=== PATIENT | female | born 1950 | race Caucasian/White ===

== ENCOUNTER 2022-02-14 07:27 | Day surgery (SDC) | payer MEDICARE, BC ==
[2022-02-14] VITALS (273 sets, daily range): BP systolic 98–138; BP diastolic 32–67; PULSE 57–72; TEMP 97.7; O2SAT 87–100
[~2022-02-14] VITALS: Ht 160 cm; Wt 61.2 kg
[2022-02-14 08:52] LABS: HEMOGLOBIN 10.9 g/dl (12.5-16.0); MEAN CELL VOLUME 94 fl (80.0-100.0); MEAN CORPUSCULAR HEMOGLOBIN 29 pg (27-31); MEAN CORPUSCULAR HGB CONC 31 g/dl (33.0-37.0); MEAN PLATELET VOLUME 9.6 fl (7.4-10.4); PLATELET COUNT 269 K/mm3 (130-400); RED BLOOD COUNT 3.75 M/mm3 (4.10-5.30); REDCELL DISTRIBUTION WIDTH-CV 14.6 % (11.5-14.5)
[2022-02-14 08:56] LABS: HEMATOCRIT 35.2 % (37.0-47.0)
[2022-02-14] MEDS ORDERED: GLUCOPHAGE1000 MG PO (09:02)
[2022-02-14] MEDS ORDERED: FARXIGA5 PO (09:02)
[2022-02-14] MEDS ORDERED: LIPITOR 80MG80 MG PO (09:03)
[2022-02-14] MEDS ORDERED: LASIX 40MG TABL40 MG PO (09:03)
[2022-02-14] MEDS ORDERED: PRINIVIL10 MG PO (09:04)
[2022-02-14] MEDS ORDERED: BYSTOLIC5 MG PO (09:05)
[2022-02-14] MEDS ORDERED: PLAVIX 75MG TAB75 MG PO (09:05)
[2022-02-14] MEDS ORDERED: XOPENEX 1.1.25 MG/3 IH (09:06)
[2022-02-14] MEDS ORDERED: TRELEGY ELLIPT1 EACH IH (09:06)
[2022-02-14] MEDS ORDERED: NITROMIST0.4 MG/Act TL (09:07)
[2022-02-14] MEDS ORDERED: STIOLTO RESPIMAT4 GM IH (09:07)
[2022-02-14] MEDS ORDERED: PROAIR HFA0.09 MG/AC IH (09:07)
[2022-02-14 09:08] LABS: PROTHROMBIN TIME 11.4 SECONDS (9.7-12.8)
[2022-02-14] MEDS ORDERED: ASPIRIN E.C. 8181 MG PO (09:08)
[2022-02-14] MEDS ORDERED: BASAGLAR K100 UNIT/1 SQ (09:08)
[2022-02-14 09:09] LABS: CALCIUM 9.4 mg/dL (8.4-10.2); CREATININE, serum 0.86 mg/dL (0.57-1.11); POTASSIUM 4.4 mmol/L (3.5-4.5)
[2022-02-14] MEDS ORDERED: MAG-OX 400400 MG/TAB PO (09:09)
[2022-02-14] MEDS ORDERED: IRON TABLETS325 MG PO (09:09)
[2022-02-14] MEDS ORDERED: MELATONIN5 M1 PO (09:10)
[2022-02-14 09:11] LABS: PARTIAL THROMBOPLASTIN TIME 30.6 SECONDS (26.0-37.0)
--- NOTE | 2022-02-14 10:51 | NUR ---
SEE MERGE FOR VITAL SIGNS, ASSESSMENTS, INTERVENTIONS AND MEDICATIONS GIVEN.
--- NOTE | 2022-02-14 12:55 | NUR ---
Pt back to express unit after left heart cath. Rt groin site soft, dressing clean and dry. cms intact distal. tele initiated. nsr on monitor. menu provided.
--- NOTE | 2022-02-14 18:10 | NUR ---
Pt has completed her 6 hour bedrest, and is up and ambulatory with steady gait in room on room air, and around nurses station with her portable o2 at 3l/min. rt groin site remains soft without any evidence of bleeding. cms intact distal. I have reviewed dc/rx and fu instructions with pt and son. no questions at time of departure. pt is escorted to exit via wheelchair.
== END 2022-02-14 18:15 | disposition home or self-care (01) ==
LOC: COL.CAR 07:27
PROVIDERS: Internal Medicine Cardiovascular Disease
DX: I25.10 Atherosclerotic heart disease of native coronary artery without angina pectoris (principal); I25.84 Coronary atherosclerosis due to calcified coronary lesion; I25.83 Coronary atherosclerosis due to lipid rich plaque; I25.82 Chronic total occlusion of coronary artery; T82.855A Stenosis of coronary artery stent, initial encounter; T82.858A Stenosis of other vascular prosthetic devices, implants and grafts, initial encounter; I10 Essential (primary) hypertension; Z95.1 Presence of aortocoronary bypass graft; Z95.5 Presence of coronary angioplasty implant and graft
CPT/HCPCS: C1769; C1894; J2250; J3010; L1830; Q9967

== ENCOUNTER 2022-03-23 16:01 | Inpatient (IN) | payer MEDICARE, BC ==
[~2022-03-23] VITALS: Ht 157.6 cm; Wt 60.9 kg
[~2022-03-23 16:01] MED LIST: ASPIRIN E.C. 8181 MG PO; BASAGLAR K100 UNIT/1 SQ; BYSTOLIC5 MG PO; FARXIGA5 PO; GLUCOPHAGE1000 MG PO; IRON TABLETS325 MG PO; LASIX 40MG TABL40 MG PO; LIPITOR 80MG80 MG PO; MAG-OX 400400 MG/TAB PO; MELATONIN5 M1 PO; NITROMIST0.4 MG/Act TL; PLAVIX 75MG TAB75 MG PO; PRINIVIL10 MG PO; PROAIR HFA0.09 MG/AC IH; STIOLTO RESPIMAT4 GM IH; TRELEGY ELLIPT1 EACH IH; XOPENEX 1.1.25 MG/3 IH
[2022-03-23 17:02] VITALS: BP 129/41; PULSE 69; TEMP 98.5
--- NOTE | 2022-03-23 20:03 | NUR ---
PT A&OX4 RESTING IN BED, FAMILY AT BEDSIDE. PT RATES PN IN RT HIP A 12/12. PT ALSO REPORTS CRAMPING IN LLE CAUSING A LOT OF PN. VSS AND TELE IN PLACE. CHRISTENSEN TO DD W YELLOW URINE OUTPUT. FALL PRECAUTIONS IN PLACE. 02 3L NC SCDS AND TEDS TO BLE. NO NEEDS AT THIS TIME. CALL LIGHT WITHIN REACH.
[2022-03-23 20:44] VITALS: BP 120/47; PULSE 70; TEMP 98.4
[2022-03-23 22:27] VITALS: BP 120/47; PULSE 70; TEMP 98.4
[2022-03-23 23:27] LABS: PH 5.5 (5.0-8.5); URINE APPEARANCE Clear (CLEAR/HAZY); URINE BLOOD 2+ (NEGATIVE); URINE COLOR Yellow (YELLOW); URINE GLUCOSE 2+ (NEGATIVE); URINE KETONE Negative (NEGATIVE); URINE NITRATE Positive (NEGATIVE); URINE PROTEIN(semi-quant) Negative (NEGATIVE); URINE UROBILINOGEN 0.2 E.U/dL (0.2-1.0)
[2022-03-23 23:28] LABS: COLLECTION METHOD CLEAN CATCH
[2022-03-23 23:39] LABS: MUCOUS Present (NOT PRESENT); SQUAMOUS EPITHELIAL None Seen /hpf (0-10); URINE BACTERIA Rare /hpf (NONE SEEN); URINE RBC >50 /hpf (0-2)
[2022-03-24] VITALS (15 sets, daily range): BP systolic 84–126; BP diastolic 35–52; PULSE 60–76; TEMP 97.2–98.7
[2022-03-24 07:21] LABS: BASO % 0.4 % (0.0-2.0); EOS # 0.1 K/mm3 (0.0-0.7); EOS % 1.2 % (0.0-4.0); GRAN # 5.7 K/mm3 (1.4-6.5); GRAN % 77.2 % (42.2-75.2); LYMPH # 0.8 K/mm3 (1.2-3.4); LYMPH % 10.8 % (20.0-51.0); MEAN CELL VOLUME 95 fl (80.0-100.0); MEAN CORPUSCULAR HGB CONC 31 g/dl (33.0-37.0); MEAN PLATELET VOLUME 10.1 fl (7.4-10.4); MONO # 0.7 K/mm3 (0.1-0.6); PLATELET COUNT 234 K/mm3 (130-400); RED BLOOD COUNT 3.29 M/mm3 (4.10-5.30); REDCELL DISTRIBUTION WIDTH-CV 14.9 % (11.5-14.5)
[2022-03-24 07:23] LABS: HEMATOCRIT 31.1 % (37.0-47.0); HEMOGLOBIN 9.7 g/dl (12.5-16.0); MEAN CORPUSCULAR HEMOGLOBIN 29 pg (27-31)
[2022-03-24 07:29] LABS: CALCIUM 8.9 mg/dL (8.4-10.2); CREATININE, serum 0.83 mg/dL (0.57-1.11); MAGNESIUM 1.7 mg/dL (1.6-2.6); POTASSIUM 4.5 mmol/L (3.5-4.5)
--- NOTE | 2022-03-24 12:04 | NUR ---
drag out worker met with patient to discuss discharge planning. Patient [place] with her son and his . Patient states that she is independent with her activities of daily living and uses [employer] home oxygen at 3L. Patient states she gets her portable tanks through [facility] in [place]. Patient's primary care provider is Dr Osorio. Worker and patient discussed need for post acute rehab and patient is agreeable. Worker provided information on [facility] acute rehab unit, [place] [facility] as well as the Medicare.gov share with skilled care options. Worker will also meet with patient's son to discuss options. Patient is awaiting clearance for surgery.
--- NOTE | 2022-03-24 12:42 | NUR ---
Pt having some complaints of pain, but she did just recently vomit. Pt stated that she does not feel nauseated. Pt is also refusing any IV pain medications. Attempted to turn pt to change sheets, but she refused stating she was not going to move.
--- NOTE | 2022-03-24 16:04 | NUR ---
Report given to OR nurse, pt off the floor for surgery
--- NOTE | 2022-03-24 18:45 | NUR ---
PT BROUGHT BACK TO ROOM FROM SURGERY. PT SLEEPY BUT AROUSABLE. OXYMASK 4L. INCISION CDI.
--- NOTE | 2022-03-24 20:12 | NUR ---
TX GIVEN VIA MOUTHPIECE, TOLERATED WELL. PT ON 4L O2 BEFORE AND AFTER TX.
--- NOTE | 2022-03-24 21:58 | NUR ---
PT A&OX4 RESTING IN BED. MEDS GIVEN AND ASSESSMENT COMPLETE. PT TOLERATING PO. BS 154 AND DOES NO REQUIRE INSULIN. PT RATES PN A 2/10. DRESSING CDI. VSS AND TELE IN PLACE. 4L NC. CHRISTENSEN TO DD W YELLOW URINE OUTPUT. TEDS AND SCDS TO BLE. FALL PRECAUTIONS IN PLACE. NO NEEDS AT THIS TIME. CALL LIGHT WITHIN REACH.
[2022-03-25] VITALS (7 sets, daily range): BP systolic 88–111; BP diastolic 40–51; PULSE 57–94; TEMP 97.4–98.5
[2022-03-25 07:05] LABS: BASO % 0.3 % (0.0-2.0); GRAN # 6.1 K/mm3 (1.4-6.5); GRAN % 84.2 % (42.2-75.2); LYMPH # 0.5 K/mm3 (1.2-3.4); LYMPH % 7.1 % (20.0-51.0); MEAN CELL VOLUME 95 fl (80.0-100.0); MEAN CORPUSCULAR HGB CONC 32 g/dl (33.0-37.0); MEAN PLATELET VOLUME 10.5 fl (7.4-10.4); MONO # 0.6 K/mm3 (0.1-0.6); PLATELET COUNT 231 K/mm3 (130-400); REDCELL DISTRIBUTION WIDTH-CV 14.7 % (11.5-14.5)
[2022-03-25 07:10] LABS: HEMATOCRIT 30.3 % (37.0-47.0); HEMOGLOBIN 9.6 g/dl (12.5-16.0); MEAN CORPUSCULAR HEMOGLOBIN 30 pg (27-31)
[2022-03-25 07:15] LABS: CALCIUM 8.8 mg/dL (8.4-10.2); CREATININE, serum 1.4 mg/dL (0.57-1.11); POTASSIUM 4.5 mmol/L (3.5-4.5)
--- NOTE | 2022-03-25 09:00 | NUR ---
Pt. sitting up in bed. Pt. is A&OX3,assessment complete. INT to lt. ac patent. Pt. reports pain at a 4. Discussed pt. will be having PT today and taking a pain pill would be benificial. Pt. voices agreement. Giving pain meds per orders. Bhakta catheter to DD, with claribel hazy urine noted.
--- NOTE | 2022-03-25 14:22 | NUR ---
workers compensation legal secretary met with patient and her son and daughter in law to discuss discharge planning. Daughter in lawOksana is the point of contact and will provide transportation to discharge destination. [phone]. Patient's preference discharges: 1. [place] [facility] (they have the referral and are full today. Will need to contact Monday morning for possible acceptance. 2.[facility] (they are screening) 3. [facility] (they are screening for a Monday Admit ) 4. [facility] facility in [place] can accept on Monday.
[2022-03-25 15:27] LABS: CREATININE, serum 1.63 mg/dL (0.57-1.11)
[2022-03-25 15:41] LABS: FRACTIONAL EXCRETION OF NA+ 0.98 %
--- NOTE | 2022-03-25 15:50 | NUR ---
floor worker well service met with patient and friends Drea/Narendra Lianet [phone] and called daughter in law, Shakira [phone] and confirmed that [facility] must be called each day to see if they can accept. Inpatient Rehab must be consulted each day to see if they can accept and that the [facility] has accepted to swing bed upon discharge. Shakira or the [facility] will provide transportation with home oxygen upon discharge.
--- NOTE | 2022-03-25 19:59 | NUR ---
PT A&OX4 RESTING IN BED. RATES PN IN HIP A 09/12. DRESSING CDI. MEDS GIVEN AND ASSESSMENT COMPLETE. 4UNITS INSULIN NEEDED PER BS OF 212. VSS STABLE AND TELE IN PLACE. TEDS AND SCDS TO BLE. NS AT 75 IN RF. 02 AT 3L. FALL PRECAUTIONS IN PLACE. NO NEEDS AT THIS TIME. CALL LIGHT WITHIN REACH.
[2022-03-26 04:38] VITALS: BP 102/42; PULSE 59; TEMP 98.4
[2022-03-26 07:27] LABS: BASO % 0.2 % (0.0-2.0); EOS # 0.1 K/mm3 (0.0-0.7); EOS % 1.2 % (0.0-4.0); GRAN # 5.8 K/mm3 (1.4-6.5); GRAN % 69.9 % (42.2-75.2); LYMPH # 1.4 K/mm3 (1.2-3.4); LYMPH % 16.9 % (20.0-51.0); MEAN CELL VOLUME 92 fl (80.0-100.0); MEAN CORPUSCULAR HGB CONC 33 g/dl (33.0-37.0); MONO # 0.9 K/mm3 (0.1-0.6); MONO % 11.4 % (1.7-9.3); PLATELET COUNT 221 K/mm3 (130-400); RED BLOOD COUNT 2.72 M/mm3 (4.10-5.30); REDCELL DISTRIBUTION WIDTH-CV 14.9 % (11.5-14.5)
[2022-03-26 07:35] LABS: HEMATOCRIT 25.1 % (37.0-47.0); HEMOGLOBIN 8.2 g/dl (12.5-16.0); MEAN CORPUSCULAR HEMOGLOBIN 30 pg (27-31)
[2022-03-26 07:45] LABS: CALCIUM 8.1 mg/dL (8.4-10.2); CREATININE, serum 1.01 mg/dL (0.57-1.11); POTASSIUM 4.4 mmol/L (3.5-4.5)
[2022-03-26 07:59] VITALS: BP 84/45; PULSE 59; TEMP 98.2
--- NOTE | 2022-03-26 08:00 | NUR ---
Pt. sitting up in bed. Pt. is A&OX3, assessment complete. INT to lt. ac patent. Pt. reports pain at a 3 on pain scale at this time. Pt. denies further needs, call light within reach.
--- NOTE | 2022-03-26 11:23 | NUR ---
DC to IPR 03/27
[2022-03-26 12:26] VITALS: BP 90/49; PULSE 65; TEMP 98.7
--- NOTE | 2022-03-26 12:36 | NUR ---
Installation Drafter rounds: Installation Drafter visit attempted. Another care provider was in the room (possibly physical therapy). Patient declined Installation Drafter visit at this time, but would like another attempt at a Installation Drafter visit be made.
--- NOTE | 2022-03-26 13:55 | NUR ---
Mint Wafer Depositor rounds: Patient is Sabianist. Has her own bible, devotional, prayer book, and rosary. Patient had hip surgery. Lives with son who is medically retired from [employer]. Patient is a [place] and retired from the [employer]. Mint Wafer Depositor provided supportive listening and prayer.
[2022-03-26 16:02] VITALS: BP 92/48; PULSE 64; TEMP 98.6
--- NOTE | 2022-03-26 19:40 | NUR ---
PT A&OX4 RESTING IN BED. MEDS GIVEN AND ASSESSMENT COMPLETE. RATES PN IN THE RIGHT HIP A 09/12. VSS AND TELE IN PLACE. TEDS AND SCDS TO BLE. 02 2L NC. FALL PRECAUTIONS IN PLACE. NO NEEDS AT THIS TIME. CALL LIGHT WITHIN REACH.
[2022-03-26 20:44] VITALS: BP 108/38; PULSE 70; TEMP 97.9
[2022-03-26 23:59] VITALS: BP 94/40; PULSE 58; TEMP 97.9
[2022-03-27 03:36] VITALS: BP 109/58; PULSE 60; TEMP 97.5
--- NOTE | 2022-03-27 08:00 | NUR ---
Pt. sitting up in bed. Pt. is A&OX3, assessment complete. INT to rt. forearm patent. Pt. reports pain at a 4 on pain scale and requests the muscle relaxer. Will give per orders. Pt. denies further needs, call light within reach.
[2022-03-27 08:24] LABS: BASO % 0.5 % (0.0-2.0); EOS # 0.2 K/mm3 (0.0-0.7); EOS % 2.9 % (0.0-4.0); GRAN # 3.6 K/mm3 (1.4-6.5); GRAN % 63.2 % (42.2-75.2); LYMPH # 1.2 K/mm3 (1.2-3.4); LYMPH % 20.3 % (20.0-51.0); MEAN CELL VOLUME 94 fl (80.0-100.0); MEAN CORPUSCULAR HGB CONC 32 g/dl (33.0-37.0); MEAN PLATELET VOLUME 10.4 fl (7.4-10.4); MONO # 0.7 K/mm3 (0.1-0.6); MONO % 12.8 % (1.7-9.3); PLATELET COUNT 229 K/mm3 (130-400); RED BLOOD COUNT 2.83 M/mm3 (4.10-5.30); REDCELL DISTRIBUTION WIDTH-CV 14.9 % (11.5-14.5)
[2022-03-27 08:25] LABS: HEMATOCRIT 26.6 % (37.0-47.0); HEMOGLOBIN 8.4 g/dl (12.5-16.0); MEAN CORPUSCULAR HEMOGLOBIN 30 pg (27-31)
[2022-03-27 08:52] LABS: CALCIUM 8.5 mg/dL (8.4-10.2); CREATININE, serum 0.78 mg/dL (0.57-1.11); POTASSIUM 5.2 mmol/L (3.5-4.5)
[2022-03-27 12:00] VITALS: BP 139/46; PULSE 65; TEMP 97.8
[2022-03-27] MEDS ORDERED: FLEXERIL 1010 MG/TAB PO (12:27)
[2022-03-27] MEDS ORDERED: ASPI325T6 PO (12:29)
[2022-03-27] MEDS ORDERED: ASPIRIN E.C. 8181 MG PO (12:29)
[2022-03-27] MEDS ORDERED: TYLENOL 500MG500 MG PO (12:30)
[2022-03-27] MEDS ORDERED: OSCAL 500 TAB500 MG PO (12:30)
[2022-03-27] MEDS ORDERED: ROXICODONE 55 MG/TAB PO (12:30)
[2022-03-27] MEDS ORDERED: COLACE 100100 MG/CAP PO (12:31)
[2022-03-27] MEDS ORDERED: VITAMIN C500 MG PO (12:32)
--- NOTE | 2022-03-27 12:51 | NUR ---
Motor Vehicle Or Caravan Salesperson rounds: Motor Vehicle Or Caravan Salesperson visit attempted; however, Patient had several visitors present in her room. Patient thanked Motor Vehicle Or Caravan Salesperson for offering to visit.
--- NOTE | 2022-03-27 14:17 | NUR ---
Pt. sitting up in chair. Pt. remains A&OX3. Transferring to IPR room 338. Report given to NATHANIEL Becker.
[2022-04-04] MEDS ORDERED: FLEXERIL 1010 MG/TAB PO (09:32)
[2022-04-04] MEDS ORDERED: ASPI325T6 PO (09:34)
[2022-04-04] MEDS ORDERED: LASIX 40MG TABL40 MG PO (09:35)
[2022-04-04] MEDS ORDERED: ROXICODONE 55 MG/TAB PO (09:37)
== END 2022-03-27 14:00 | DRG 481 ==
LOC: MEDICAL 16:01 → SURG 17:17
PROVIDERS: Orthopaedic Surgery; Physician Assistant; ADMIT Hospitalist
PROC: 0QS606Z Reposition Right Upper Femur with Intramedullary Internal Fixation Device, Open Approach (ICD-10-PCS; principal; 2022-03-24 20:00)
DX: S72.141A Displaced intertrochanteric fracture of right femur, initial encounter for closed fracture (principal); I42.9 Cardiomyopathy, unspecified; J96.11 Chronic respiratory failure with hypoxia; N39.0 Urinary tract infection, site not specified; N17.9 Acute kidney failure, unspecified; F17.210 Nicotine dependence, cigarettes, uncomplicated; I25.10 Atherosclerotic heart disease of native coronary artery without angina pectoris; E11.9 Type 2 diabetes mellitus without complications; J44.9 Chronic obstructive pulmonary disease, unspecified; I50.9 Heart failure, unspecified; S01.319A Laceration without foreign body of unspecified ear, initial encounter; D64.9 Anemia, unspecified; E78.5 Hyperlipidemia, unspecified; H26.9 Unspecified cataract; E87.5 Hyperkalemia; I95.9 Hypotension, unspecified; W10.8XXA Fall (on) (from) other stairs and steps, initial encounter; Z95.5 Presence of coronary angioplasty implant and graft; Z95.1 Presence of aortocoronary bypass graft; Y92.89 Other specified places as the place of occurrence of the external cause; Z79.4 Long term (current) use of insulin; I25.2 Old myocardial infarction; Z79.82 Long term (current) use of aspirin; Z88.0 Allergy status to penicillin; Z88.8 Allergy status to other drugs, medicaments and biological substances; Y93.89 Activity, other specified; Z23 Encounter for immunization
CPT/HCPCS: OP; A9284; C1713; J0690; J0744; J1100; J1815; J2250; J2270; J2405; J2704; J3010; J7030; J7120

== ENCOUNTER 2024-02-05 00:19 | Inpatient (IN) | payer MEDICARE, BC ==
[2024-02-05] VITALS (414 sets, daily range): BP systolic 88–130; BP diastolic 37–71; PULSE 77–93; TEMP 97.5–98.4; O2SAT 85–100
[~2024-02-05] VITALS: Ht 157.5 cm; Wt 55.7 kg
[~2024-02-05 00:19] MED LIST changes: +ALDACTONE 25MG25 M1 PO; +ASPI325T6 PO; +CLEOCIN HC150 MG/CAP PO; +COLACE 100100 MG/CAP PO; +FLEXERIL 1010 MG/TAB PO; +FOSAMAX 70MG TA70 MG PO; +LASIX 20MG TABL20 MG PO; +NATURAL POTASS595 MG PO; +OSCAL 500 TAB500 MG PO; -PRINIVIL10 MG PO; +ROXICODONE 55 MG/TAB PO; +SINGULAIR 110 MG/TAB PO; +TYLENOL 500MG500 MG PO; +ULTRAM 50MG TAB50 MG PO; +VITAMIN C500 MG PO; +VITAMIN D31000 I1 PO; +ZESTRIL2.5 MG PO
[2024-02-05] MEDS ORDERED: FARXIGA5 PO (01:00)
[2024-02-05] MEDS ORDERED: COMBIRESP IH (01:06)
[2024-02-05] MEDS ORDERED: Azithromycin 250 MG TAB PO SCH ×2 (01:15→02:45)
[2024-02-05] MEDS ORDERED: dexAMETHasone 10 MG/ML VIAL IV SCH (01:15)
[2024-02-05] MEDS ORDERED: Albuterol/Ipratropium 3 MG-0.5 MG/3 ML Neb Soln IH PRN (01:15)
[2024-02-05] MEDS ORDERED: Albuterol/Ipratropium 3 MG-0.5 MG/3 ML Neb Soln IH SCH (02:00)
--- NOTE | 2024-02-05 02:00 | NUR ---
PATIENT ARRIVED ON THE UNIT AT 0200, VIA [facility]. PATIENT WALKED FROM STRETCHER TO ICU BED. PATIENT THEN PLACED IN A YELLOW GOWN AND HOOKED UP TO OUR VITAL SIGN AND TELEMETRY MACHINE. PATIENT HAS A 20 G IN THE LEFT AC AND A 20 G IN THE RIGHT FOREARM. EMS HAD LEVOPHED RUNNING AT 0.04, BUT WAS SHUT OFF AT THIS TIME. PATIENT'S GLASSES ARE ON BEDSIDE TABLE. PATIENT'S PURSE ALSO ON BEDSIDE TABLE. PATIENT'S CLOTHES IN THE CLOSET. PATIENT IS READY TO ATTEMPT AT SOME SLEEP. BED IN LOW POSITION AND CALL LIGHT WITHIN THE PATIENT'S REACH.
[2024-02-05] MEDS ORDERED: cefTRIAXone 2 G in Water For Injection,Sterile 20 ML IV SCH (03:00)
[2024-02-05] MEDS ORDERED: Dextrose 50% Water 25 GM/50 ML SYRINGE IV PRN (04:15)
[2024-02-05] MEDS ORDERED: Glucagon 1 MG VIAL IM PRN (04:15)
[2024-02-05] MEDS ORDERED: Dextrose (Glucose) 15 GM (4 x 3.75 GM) Chewable TABLET PACK PO PRN (04:15)
[2024-02-05 04:50] LABS: MEAN CELL VOLUME 94 fl (80.0-100.0); MEAN CORPUSCULAR HGB CONC 32 g/dl (33.0-37.0); MEAN PLATELET VOLUME 9.8 fl (7.4-10.4); PLATELET COUNT 257 K/mm3 (130-400); RED BLOOD COUNT 3.02 M/mm3 (4.10-5.30); REDCELL DISTRIBUTION WIDTH-CV 14.6 % (11.5-14.5)
[2024-02-05 04:55] LABS: HEMATOCRIT 28.3 % (37.0-47.0); MEAN CORPUSCULAR HEMOGLOBIN 30 pg (27-31)
[2024-02-05 05:01] LABS: ALBUMIN 2.3 g/dL (3.4-4.8); BILIRUBIN,TOTAL 0.2 mg/dL (0.2-1.2); CALCIUM 8.3 mg/dL (8.4-10.2); CREATININE, serum 0.92 mg/dL (0.57-1.11); POTASSIUM 3.6 mEq/L (3.5-4.5); TOTAL PROTEIN 6.2 g/dl (6.2-8.1)
[2024-02-05 05:20] LABS: BAND 14 % (0-10); LYMPHOCYTE 15 % (20.0-51.0); NEUTROPHILS 67 % (42.0-75.2); OVALOCYTES 1+; PLATELET ESTIMATE NORMAL (NORMAL)
[2024-02-05 05:21] LABS: BURR CELLS 1+
[2024-02-05] MEDS ORDERED: Formoterol Neb Soln 20 MCG/2 ML UD IH SCH (07:00)
[2024-02-05] MEDS ORDERED: Budesonide Neb Susp 0.5 MG/2 ML AMP IH SCH (07:00)
[2024-02-05] MEDS ORDERED: Insulin Lispro (HumaLOG) SQ SCH (08:00)
--- NOTE | 2024-02-05 08:10 | NUR ---
Awake and resting in bed; Has a productive cought, but denies any shortness of air or other concerns. Assisted up to use the bathroom. Ambulates with stand by assist only. Call light left within reach.
[2024-02-05] MEDS ORDERED: guaiFENesin ER 1,200 MG **** subs to guaiFENesin 400 MG PO SCH (09:00)
[2024-02-05] MEDS ORDERED: Montelukast 10 MG TAB PO SCH (09:00)
[2024-02-05] MEDS ORDERED: Clopidogrel 75 MG TAB PO SCH (09:00)
[2024-02-05] MEDS ORDERED: Umeclidinium/Vilanterol 62.5-25 MCG INHALATION/INHALER IH SCH (09:00)
[2024-02-05] MEDS ORDERED: Fluticasone/Umeclidinium/Vilanterol **** subs to Budesonide + Umeclid/Vilant IH SCH (09:00)
--- NOTE | 2024-02-05 13:47 | NUR ---
pick pack worker met with patient to discuss discharge planning. Patient lives in [place] with her son, Michele P# [phone] and his , Shakira, P# [phone]. PCP is Dr. Finch, [facility] [place]. Patient had some difficulty affording heart medications but was able to get them at [facility] for around $10 versus her regular pharmacy that was $200. Insurance is Medicare A and B and BCBS Federal. Patient has a DPOA-HC on file appointing her sister, Amanda, P# [phone], as primary then Michele then Neno. Patient stated this was still the most current form. DME is nebulizer, oxygen concentrator for night time, portable oxygen (both concentrator and portable is through [employer]), walker, cane, rollator walker. Patient's family normally goes with patient to appointments. Patient reports to be independent with ADLS. Patient would like to return home at time of discharge. Discharge plan: home
--- NOTE | 2024-02-05 17:15 | NUR ---
Patient to room 318 by wheelchair from the ICU. A&Ox4. VSS 2.5L Nc O2. IV CDI. Denies pain and discomfort. Nurse oriented the patient to location, call light and room. Call light within reach
--- NOTE | 2024-02-05 20:30 | NUR ---
UPON SHIFT ASSESSMENT, DARLYN WAS AWAKE IN BED. SHE IS AXO X4 AND CERVANTES COULD BE NOTED DURING ASSESSMENT QUESTIONS AND AMBULATING TO RESTROOM. RT UPPER LOBE-EXP. WHEEZE AND BILATERAL LOBES- COARSE CRACKLES. PATIENT STATES SHE FEELS LIKE SHE HAS, "A FLUTTERY FEELING IN MY CHEST EVERY NOW AND THEN." D/T SIGNIFICANT CARDIAC Hx, CALL PLACED TO [facility]ORB FOR TELE GIVEN. VS ARE STABLE WITH EXCEPTION OF BP 99 SYSTOLIC-REPEAT BP CHECK-116 SYSTOLIC. CURRENT TELE- NS AT 74 BPM. CALL LIGHT WITHIN REACH.
[2024-02-05] MEDS ORDERED: Atorvastatin 80 MG TAB PO SCH (21:00)
[2024-02-05] MEDS ORDERED: Insulin Glargine-ygfn (Lantus) SQ SCH (21:00)
[2024-02-05] MEDS ORDERED: Melatonin 3 MG TAB PO SCH (21:00)
[2024-02-06] VITALS (12 sets, daily range): BP systolic 94–124; BP diastolic 54–70; PULSE 56–97; TEMP 97.4–98.4
--- NOTE | 2024-02-06 | NUR ---
PATIENT DEMANDED BED ALARM OFF. EDUCATION PROVIDED AND PATIENT AGREEABLE TO ALL OTHER FALL PRECATIONS AND TO UTILIZE CALL LIGHT WHEN GETTING OUT OF BED. PATIENT VERBALIZED UNDERSTANDING OF FALL RISKS.
--- NOTE | 2024-02-06 02:29 | NUR ---
ENTERED PATIENT ROOM TO ADMINISTER SCHEDULED ABX. PATIENT RESTING PEACEFULLY SUPINE. DENIES PAIN. PRODUCTIVE COUGH NOTED. STATES NO NEEDS AT THIS TIME.
--- NOTE | 2024-02-06 05:59 | NUR ---
THROUGHOUT THE NIGHT, DARLYN HAD OCCASIONAL SOFT BPs WITH MAP GREATER THAN 65. WILL PASS TO DAYSHIFT PATIENT MAY NEED ORTHOSTATICS-LAST KNOWN EF IS 35%. RESPIRATORY STATUS REMAINS UNCHANGED AND SHE REMAINS ON 2.5L 02 NA-SAT 96%-ALERT AND ORIENTED.
[2024-02-06 06:55] LABS: MEAN CELL VOLUME 93 fl (80.0-100.0); MEAN CORPUSCULAR HGB CONC 33 g/dl (33.0-37.0); MEAN PLATELET VOLUME 9.7 fl (7.4-10.4); PLATELET COUNT 305 K/mm3 (130-400); REDCELL DISTRIBUTION WIDTH-CV 14.7 % (11.5-14.5)
[2024-02-06 07:01] LABS: HEMATOCRIT 29.9 % (37.0-47.0); HEMOGLOBIN 9.8 g/dl (12.5-16.0); MEAN CORPUSCULAR HEMOGLOBIN 31 pg (27-31)
--- NOTE | 2024-02-06 07:02 | NUR ---
PATIENT C/O OF HEMMORRHOID BLEEDING. VISUAL INSPECTION OF RECTUM SHOWED PREEXISTING FISTULA AND NO ACTIVE BLEEDING. PATIENT STATED, "IT WAS A SMALL DIME SIZE SPOT OF BRIGHT RED BLOOD." BARRIER CREAM PROVIDED AND BEDSIDDE REPORT GIVEN TO KAYLEIGH.
[2024-02-06 07:07] LABS: ALBUMIN 2.5 g/dL (3.4-4.8); BILIRUBIN,TOTAL 0.2 mg/dL (0.2-1.2); CALCIUM 9.6 mg/dL (8.4-10.2); CREATININE, serum 0.87 mg/dL (0.57-1.11); POTASSIUM 4.1 mEq/L (3.5-4.5); TOTAL PROTEIN 6.8 g/dl (6.2-8.1)
--- NOTE | 2024-02-06 07:35 | NUR ---
Bedside report received from NATHANIEL Roberts. Pt awake in bed with no complaints. Sputum culture collected and sent to lab. Call light within reach.
[2024-02-06 08:07] LABS: BAND 13 % (0-10); HYPOCHROMIA 1+; LYMPHOCYTE 13 % (20.0-51.0); METAMYELOCYTE 2 % (0-0); NEUTROPHILS 61 % (42.0-75.2); PLATELET ESTIMATE NORMAL (NORMAL)
[2024-02-06 08:08] LABS: BURR CELLS 1+; OVALOCYTES 1+
--- NOTE | 2024-02-06 08:27 | NUR ---
PATIENT BREATH SOUNDS THIS AM DI BASES AND COARSE CRACKLES T/O, THICK SPUTUM, PATIENT STATES GREEN IN COLOR, SPO2 ON3 LPM 92%.
--- NOTE | 2024-02-06 08:37 | NUR ---
Pt awake in bed finishing breakfast. Shift assessment completed. VSS. O2 in place via NC at 3L. No irritation to nares or skin behind ears observed. Pt denies pain rating 0/10. INT to Rt forearm patent with no swelling, redness, or drainage. Pt ambulates with independently with no complications. Pt has no request at this time. Call light within reach.
[2024-02-06] MEDS ORDERED: Famotidine 20 MG TAB PO SCH (09:25)
--- NOTE | 2024-02-06 11:26 | NUR ---
D: Golf Course Superintendent stopped by room on rounds. A: Pt was resting and content in her chair. Pt asked for a blessing of the sick. Golf Course Superintendent called Father Issa to come and sit with pt, he said he would try to make it up today for the blessing. Pt appreciated the visit. P: Golf Course Superintendent informed pt that if she needed anything else from the automotive lube technician area to let her nurse know. Golf Course Superintendent will follow up as needed.
[2024-02-06] MEDS ORDERED: Insulin Glargine-ygfn (Lantus) SQ SCH (21:00)
--- NOTE | 2024-02-06 21:00 | NUR ---
UPON SHIFT ASSESSMENT, MAXIMO WAS AWAKE IN BED, PLEASANT AND A&O X 4. LUNG SOUNDS AUSCULTATED EXP. AND INSP. WHEEZES IN ALL LOBES WITH FINE CRACKLES. TISSUE BEDSIDE EXHIBITED PALE GREEN SPUTUM IN MODERATE AMOUNT. VS ARE WNL AND TELE IS PACED SINUS. RT FA IV INFILTERATED, NEW IV SET LT AC-22G BD AUTOGAURD. PATIENT ANXIOUS FOR DISCHARGE TOMMORROW. CUURENT O2 SAT IS 91% ON 1L PER PULMNOLOGY PARAMETERS FOR COPD. BG REMAINS ELEVATED AT 360. 24 UNITS LANTUS AND 8 UNITS SLIDING SCALE INSULIN ADMINISTERED. CALL LIGHT WITHIN REACH.
[2024-02-07] VITALS: BP 152/68; PULSE 68; TEMP 97.6
[2024-02-07 01:03] VITALS: BP_SYST 152
[2024-02-07 04:06] VITALS: BP 134/75; PULSE 88; TEMP 97.7
[2024-02-07 04:30] VITALS: BP_SYST 134
[2024-02-07 07:04] LABS: MEAN CELL VOLUME 93 fl (80.0-100.0); MEAN CORPUSCULAR HGB CONC 32 g/dl (33.0-37.0); MEAN PLATELET VOLUME 9.5 fl (7.4-10.4); PLATELET COUNT 325 K/mm3 (130-400); REDCELL DISTRIBUTION WIDTH-CV 14.5 % (11.5-14.5)
[2024-02-07 07:15] LABS: HEMATOCRIT 29.8 % (37.0-47.0); HEMOGLOBIN 9.6 g/dl (12.5-16.0); MEAN CORPUSCULAR HEMOGLOBIN 30 pg (27-31)
[2024-02-07 07:24] LABS: ALBUMIN 2.6 g/dL (3.4-4.8); BILIRUBIN,TOTAL 0.1 mg/dL (0.2-1.2); CREATININE, serum 0.89 mg/dL (0.57-1.11); POTASSIUM 4.3 mEq/L (3.5-4.5); TOTAL PROTEIN 6.6 g/dl (6.2-8.1)
[2024-02-07 07:53] LABS: BAND 5 % (0-10); LYMPHOCYTE 18 % (20.0-51.0); METAMYELOCYTE 1 % (0-0); NEUTROPHILS 71 % (42.0-75.2); OVALOCYTES 1+
[2024-02-07 07:54] LABS: HYPOCHROMIA 1+; PLATELET ESTIMATE NORMAL (NORMAL)
--- NOTE | 2024-02-07 08:00 | NUR ---
Patient sitting up in bed. A&Ox4. VSS .5L NC O2. IV CDI. Denies pain and discomfort. Is hoping to go home today. Call light within reach
[2024-02-07] MEDS ORDERED: CEFTIN500 MG PO (08:29)
[2024-02-07] MEDS ORDERED: DECADRON 4MG TAB4 MG PO (08:33)
[2024-02-07 08:34] VITALS: BP 133/65; PULSE 93; TEMP 97.6
[2024-02-07] MEDS ORDERED: dexAMETHasone 4 MG TAB PO SCH (09:00)
--- NOTE | 2024-02-07 09:22 | NUR ---
Discharge paperwork reviewed with the patient. PAtient verbalized an understanding to follow doctors orders. IV removed, tip intact. Gauze and coban applied. Patient getting dressed and waiting on ride home. Call light within reach
--- NOTE | 2024-02-07 11:30 | NUR ---
Patient taken by wheelchair to awaiting vehicle. Discharge paperwork and personal belongings with the patient
--- NOTE | 2024-02-07 12:03 | NUR ---
Agree with student nurses assessment of the patient. . No further needs expressed
[2024-02-10] MEDS ORDERED: dexAMETHasone 4 MG TAB PO SCH (09:00)
[2024-02-13] MEDS ORDERED: dexAMETHasone 1 MG TAB PO SCH (09:00)
== END 2024-02-07 11:30 | disposition home or self-care (01) | DRG 871 ==
LOC: IMCU 00:19 → ICU 02:00 → MEDICAL 17:10
PROVIDERS: Nurse Practitioner Family; ADMIT Internal Medicine
DX: A41.9 Sepsis, unspecified organism (principal); J18.1 Lobar pneumonia, unspecified organism; R65.21 Severe sepsis with septic shock; J96.21 Acute and chronic respiratory failure with hypoxia; C34.91 Malignant neoplasm of unspecified part of right bronchus or lung; J44.0 Chronic obstructive pulmonary disease with (acute) lower respiratory infection; J44.1 Chronic obstructive pulmonary disease with (acute) exacerbation; I25.10 Atherosclerotic heart disease of native coronary artery without angina pectoris; I25.5 Ischemic cardiomyopathy; J44.9 Chronic obstructive pulmonary disease, unspecified; D64.9 Anemia, unspecified; I95.9 Hypotension, unspecified; R19.7 Diarrhea, unspecified; F17.210 Nicotine dependence, cigarettes, uncomplicated; M81.0 Age-related osteoporosis without current pathological fracture; E11.22 Type 2 diabetes mellitus with diabetic chronic kidney disease; N18.9 Chronic kidney disease, unspecified; Z90.710 Acquired absence of both cervix and uterus; Z95.1 Presence of aortocoronary bypass graft; Z95.5 Presence of coronary angioplasty implant and graft; Z95.810 Presence of automatic (implantable) cardiac defibrillator; Z99.81 Dependence on supplemental oxygen; Z90.49 Acquired absence of other specified parts of digestive tract; I25.2 Old myocardial infarction; Z79.84 Long term (current) use of oral hypoglycemic drugs; Z79.4 Long term (current) use of insulin; Z79.899 Other long term (current) drug therapy; Z79.02 Long term (current) use of antithrombotics/antiplatelets; Z79.82 Long term (current) use of aspirin; Z88.8 Allergy status to other drugs, medicaments and biological substances; Z91.010 Allergy to peanuts; Z23 Encounter for immunization
CPT/HCPCS: J0696; J1100; J1815; J8540